=== PATIENT | female | born 1965 | race Caucasian/White ===

== ENCOUNTER 2021-10-20 19:34 | Emergency (ER) | payer OTHER ==
[2021-10-20 19:59] LABS: HEMOGLOBIN 14.4 gm/dl (12.3-15.3); RED BLOOD COUNT 4.72 M/UL (4.00-5.10); WHITE BLOOD COUNT 9.4 K/UL (4.5-11.0)
[2021-10-20 20:21] LABS: BUN/CREATININE RATIO 23 (0-10)
== END 2021-10-21 02:13 | disposition home or self-care (01) ==
LOC: ER1 19:34
PROVIDERS: Family Medicine
DX: M54.2 Cervicalgia (principal); R68.84 Jaw pain; M54.6 Pain in thoracic spine
CPT/HCPCS: 71045; 80053; 82550; 82553; 84484; 85025; 93005; 99284